=== PATIENT | male | born 1975 | race Caucasian/White ===

== ENCOUNTER 2020-02-01 13:30 | Inpatient (IN) | payer SELFPAY ==
[2020-02-01 14:06] LABS: #Basophils 0.1 thou/uL (0.0-0.2); #Eosinphils 0.1 thou/uL (0.0-0.7); #Lymphocytes 2.2 thou/uL (1.20-3.40); #Monocytes 0.7 thou/uL (0.11-0.59); #Neutrophils 4.8 thou/uL (1.40-6.50); %Basophils 1.1 % (0.0-1.0); %Eosinophils 1.3 % (0.0-10.0); %Lymphocytes 28.3 % (21.0-51.0); %Monocytes 8.7 % (0.0-10.0); %Neutrophils 60.6 % (42.0-75.0); Hemoglobin 15.9 g/dL (14.0-18.0); Mean Corpuscular HGB CONC 32.9 g/dL (32.0-36.0); Mean Corpuscular Hemoglobin 28.6 pg (27.0-31.0); Mean Corpuscular Volume 86.9 fL (78.0-98.0); Mean Platelet Volume 8.6 fL (7.4-10.4); Platelet Count 192 thou/uL (130-400); RBC Distribution Width 12.2 % (11.5-14.5); Red Blood Cell (RBC) Count 5.58 mill/uL (4.70-6.10); White Blood Cell (WBC) Count 7.9 thou/uL (4.8-10.8)
--- NOTE | 2020-02-01 14:15 | RAD ---
Chest one view HISTORY: Cough. Chest pain. FINDINGS: Cardiac silhouette and pulmonary vasculature are unremarkable. Mediastinum is midline. No c onfluent airspace consolidation or evidence of pneumothorax. monitor technician leads overlie the chest. IMPRESSION : Normal exam.
[2020-02-01 14:29] LABS: ALT (SGPT) 44 U/L (8-55); AST (SGOT) 31 U/L (5-34); Albumin 4.2 g/dL (3.5-5.0); Alkaline Phosphatase 124 U/L (40-110); Anion Gap 14 mmol/L (10-20); BUN (Urea Nitrogen) 19 mg/dL (8.9-20.6); Bilirubin, Total 0.9 mg/dL (0.2-1.2); CK (CPK) 201 U/L (30-200); Calc. Creatinine Clearance 0 mL/min (70-130); Carbon Dioxide 19 mmol/L (22-29); Chloride 107 mmol/L (98-107); Estimated GFR-MDRD 55; Globulin 2.8 g/dL (2.4-3.5); Glucose 71 mg/dL (70-105); Lipase 43 U/L (8-78); Potassium 4.2 mmol/L (3.5-5.1); Sodium 136 mmol/L (136-145)
[2020-02-01 14:51] LABS: CKMB 6.5 ng/mL (0-6.6)
[2020-02-01] MEDS ORDERED: Nitroglycerin 2% Ointment 1 INCH/1 GM Packet ONE (15:09)
[2020-02-01] MEDS ORDERED: Aspirin Chewable 81 MG TAB ONE (15:09)
[2020-02-01] MEDS ORDERED: Labetalol HCl 100 MG/20 ML VIAL SLOW IVP PRN (16:47)
[2020-02-01] MEDS ORDERED: cloNIDine 0.1 MG TAB PO PRN (16:47)
[2020-02-01] MEDS ORDERED: Acetaminophen 325 MG TAB PO PRN (16:49)
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
[2020-02-01 17:49] LABS: Troponin I 0.011 ng/mL (< 0.028)
[2020-02-01 18:40] VITALS: BMI 28.2
[2020-02-01] MEDS: Famotidine 20 MG TAB PO SCH (20:16)
[2020-02-01] MEDS: Nitroglycerin 2% Ointment 1 INCH/1 GM Packet TOP SCH (20:16)
[2020-02-01 20:17] LABS: Troponin I Less than 0.010 ng/mL (< 0.028)
[2020-02-01] MEDS ORDERED: Amlodipine 5 MG TAB PO SCH (21:00)
[2020-02-01] MEDS: Nitroglycerin 0.4 MG TAB (25 Tab Bottle) PO PRN ×2 (23:37→23:42)
[2020-02-01] MEDS ORDERED: Sodium Chloride 0.9% 1,000 ML IV SCH (23:55)
[2020-02-01 23:59] LABS: Bacteria/HPF None Seen HPF (None Seen); Bilirubin Negative (Negative); Blood, Urine Negative (Negative); Clarity Clear (Clear); Glucose, Urine (Dipstick) Normal (Negative); Leukocyte Negative Leu/uL (Negative); Nitrite Negative (Negative); Protein, Urine (Dipstick) Negative (Neg-Trace); RBC/HPF None Seen HPF (0-3); Squamous Epithelial None Seen HPF (0-3); Urobilinogen Normal mg/dL (Less than 2); WBC/HPF 0-3 HPF (0-3)
[2020-02-02 00:12] LABS: Medtox Reader # READER 4
[2020-02-02 00:13] LABS: Amphetamine Detected (NotDetected); Barbiturates Screen Not Detected (NotDetected); Benzodiazepine Screen Not Detected (NotDetected); Cocaine Metabolite Screen Not Detected (NotDetected); Medtox Control Line Valid? VALID (VALID); Methadone Not Detected (NotDetected); Methamphetamine Detected (NotDetected); Opiate Screen Not Detected (NotDetected); Oxycodone Screen Not Detected (NotDetected); Phencyclidine (PCP) Not Detected (NotDetected); THC/Cannabinoid Screen Not Detected (NotDetected); Tricyclic Screen Not Detected (NotDetected)
[2020-02-02] MEDS: Nitroglycerin 2% Ointment 1 INCH/1 GM Packet TOP SCH (04:58)
[2020-02-02 05:28] LABS: #Basophils 0.1 thou/uL (0.0-0.2); #Eosinphils 0.1 thou/uL (0.0-0.7); #Lymphocytes 2.8 thou/uL (1.20-3.40); #Monocytes 0.6 thou/uL (0.11-0.59); %Basophils 0.8 % (0.0-1.0); %Eosinophils 1.9 % (0.0-10.0); %Lymphocytes 36.9 % (21.0-51.0); %Monocytes 7.2 % (0.0-10.0); Hemoglobin 15.3 g/dL (14.0-18.0); Mean Corpuscular HGB CONC 33.3 g/dL (32.0-36.0); Mean Platelet Volume 9.2 fL (7.4-10.4); Platelet Count 177 thou/uL (130-400); RBC Distribution Width 12.3 % (11.5-14.5); Red Blood Cell (RBC) Count 5.27 mill/uL (4.70-6.10); White Blood Cell (WBC) Count 7.5 thou/uL (4.8-10.8)
[2020-02-02 05:55] LABS: Anion Gap 11 mmol/L (10-20); BUN (Urea Nitrogen) 18 mg/dL (8.9-20.6); Calc. Creatinine Clearance 110 mL/min (70-130); Calcium 8.8 mg/dL (7.8-10.44); Carbon Dioxide 20 mmol/L (22-29); Cardiac Risk 3.4 (Less than 4.5); Chloride 111 mmol/L (98-107); Cholesterol 137 mg/dl (< 200 Desired); Estimated GFR-MDRD 66; Glucose 98 mg/dL (70-105); HDL Cholesterol 40 mg/dL (>60 Neg Risk); LDL Cholesterol, Calculated 55 mg/dL; Potassium 4.2 mmol/L (3.5-5.1); Sodium 138 mmol/L (136-145); Triglycerides 211 mg/dL (Less than 150)
--- NOTE | 2020-02-02 07:55 | ULT ---
Carotid duplex sonogram HISTORY: Syncope. Vascular disease. FINDINGS: Right: Minimal plaque. Color and spectral Doppler evaluation, peak systolic velocity of 50 cm/s, and IC to CC ratio of 0.8 suggest no hematemesis significant stenosis within the extracranial right ICA. Antegrade flow within the vertebral artery. Left: Minimal plaque. Color and spectral Doppler evaluation, peak systolic velocity of 47 cm/s, and I C to CC ratio of 0.8 suggest no hematemesis significant stenosis within the extracranial left ICA. Antegrade flow within the vertebral artery. IMPRESSION : Minimal atherosclerosis visualized. No sonographic evidence of significant extracranial ICA stenosis.
[2020-02-02] MEDS ORDERED: Communication Order-Pharmacy FS SCH (09:00)
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
[2020-02-02] MEDS: Aspirin 81 mg Enteric Coated Tablet PO SCH (09:39)
[2020-02-02] MEDS: Famotidine 20 MG TAB PO SCH ×2 (09:39→21:38)
[2020-02-02] MEDS: NIFEdipine XL 30 MG TAB PO SCH (09:39)
--- NOTE | 2020-02-02 10:25 | PDOC.HOSPP ---
- Subjective Encounter Date: 02/02/20 Encounter Time: 10:24 Subjective: Patient seen and examined for CP/syncope. No new CP. No other complaints. No overnight events - Objective Vital Signs & Weight: Vital Signs (12 hours) Temp Pulse Resp BP BP BP BP 02/02/20 09:39 82 02/02/20 07:24 97.6 F 82 16 141/105 H 153/109 H 141/101 H 02/02/20 04:52 97.3 F L 89 18 147/92 H 02/01/20 23:28 78 144/91 H Pulse Ox 02/02/20 09:39 02/02/20 07:24 97 02/02/20 04:52 99 02/01/20 23:28 Weight Weight 220 lb I&O: 02/01/20 02/02/20 02/03/20 06:59 06:59 06:59 Intake Total 1800 Output Total 600 Balance 1200 Result Diagrams: 02/02/20 04:49 02/02/20 04:49 Additional Labs: Laboratory Tests 02/02/20 04:49 Triglycerides 211 H Cholesterol 137 LDL Cholesterol, Calc 55 HDL Cholesterol 40 Laboratory Tests 02/01/20 23:45 Ur Amphetamines Screen Detected H U Methamphetamines Scrn Detected H Radiology Reviewed by me: Yes (Carotid - no hemo sig stenosis) EKG Reviewed by me: Yes (Tele SR) Hospitalist ROS - Review of Systems Respiratory: denies: cough, dry, shortness of breath, hemoptysis, SOB with excertion, pleuritic pain, sputum, wheezing, other Cardiovascular: denies: chest pain, palpitations, orthopnea, paroxysmal noc. dyspnea, edema, light headedness, other Gastrointestinal: denies: nausea, vomiting, abdominal pain, diarrhea, constipation, melena, hematochezia, other - Medication Medications: Active Medications Generic Name Dose Route Start Last Admin Trade Name Freq PRN Reason Stop Dose Admin Acetaminophen 650 mg 02/01/20 16:49 02/01/20 21:41 Tylenol PO 650 mg Q4H PRN Administration Headache/Fever/Mild Pain (1-3) Aspirin 81 mg 02/02/20 09:00 02/02/20 09:39 Ecotrin PO 81 mg DAILY JOSSELIN Administration Famotidine 20 mg 02/01/20 21:00 02/02/20 09:39 Pepcid PO 20 mg BID JOSSELIN Administration Nifedipine 30 mg 02/02/20 09:00 02/02/20 09:39 Procardia Xl PO 30 mg DAILY JOSSELIN Administration Nitroglycerin 0.5 inch 02/01/20 22:00 02/02/20 04:58 Nitro-Bid 2% Ointment TOP 0.5 inch Q8HR JOSSELIN Administration Nitroglycerin 0.4 mg 02/01/20 16:43 02/01/20 23:42 Nitrostat PO 1 tab Q5MIN PRN Administration Chest Pain Sodium Chloride 10 ml 02/01/20 21:00 02/02/20 09:40 Flush - Normal Saline IVF 10 ml Q12HR JOSSELIN Administration - Exam General Appearance: NAD Neck: supple, no JVD Heart: RRR, no gallops, no rubs, normal peripheral pulses Respiratory: CTAB, no wheezes, no rales, no ronchi, normal chest expansion Gastrointestinal: soft, non-tender, non-distended, normal bowel sounds Extremities: no cyanosis, no clubbing Neurological: normal sensation to touch, no weakness, no new deficit Psychiatric: normal affect, A&O x 3 Hosp A/P - Plan DVT proph w/SCDs CP/?Unstable angina Syncope ?etio ACEI induced cough Meth abuse HTN - uncontrolled Prolonged QT Cannabis abuse CKD 2 Dyslipidemia PLAN: Cardio input appreciated Cardiac Cath planned Cont ASA Change Amlodipine to Procardia XL Clonidine PRN Cont other meds Counselled on lifestyle changes
[2020-02-02] MEDS ORDERED: ALPRAZolam 0.25 MG TAB PO PRN (10:30)
[2020-02-02] MEDS ORDERED: Enoxaparin Sodium 40 MG/0.4 ML SYRINGE SC SCH (16:15)
[2020-02-02] MEDS: Enoxaparin Sodium 40 MG/0.4 ML SYRINGE SC SCH (21:38)
[2020-02-03] MEDS: NIFEdipine XL 30 MG TAB PO SCH (08:51)
[2020-02-03] MEDS: Famotidine 20 MG TAB PO SCH ×2 (08:51→21:37)
[2020-02-03] MEDS: Aspirin 81 mg Enteric Coated Tablet PO SCH (08:51)
[2020-02-03] MEDS: Enoxaparin Sodium 40 MG/0.4 ML SYRINGE SC SCH (08:52)
--- NOTE | 2020-02-03 10:44 | CT ---
CT PULMONARY ANGIOGRAM WITH IV CONTRAST AND 3D MIP RECONSTRUCTIONS: DATE: 02/03/2020. PROVIDED CLINICAL HISTORY: Chest pain and syncope. FINDINGS: The heart, pericardium, and great vessels demonstrate a normal CT appearance. There is no evidence f or central or segmental pulmonary embolus. There is trace pericardial fluid. There is no evidence for thoracic lymph node enlargement. The airway appears patent and of normal caliber. There is a 6 mm noncalcified pulmonary nodule involving the right middle lobe. The lungs appear othe rwise free of significant opacity. There is no pleural fluid or pneumothorax apparent. The visualized portions of the upper abdomen appear unremarkable. With the exception of nonspecific b ilateral partially visualized perinephric fat stranding. The osseous structures demonstrate no concerning lytic or blastic lesions. IMPRESSION: 1. No evidence for central or segmental pulmonary embolus. 2. 6 mm noncalcified right middle lobe pulmonary nodule. [id number] followup chest CT recommen ded. POS: SHELBI
[2020-02-03] MEDS ORDERED: Iopamidol 370 76% 50 ML VIAL FS ONE (13:29)
--- NOTE | 2020-02-03 13:56 | PRG ---
DATE OF SERVICE: 02/03/2020 SUBJECTIVE: Mr. Angeles is doing better. No chest pain or pressure. CT pulmonary angiogram showed no evidence of any thrombus. When I spoke to him, he sounds like he does have probably sleep apnea. He is told that he snores very loud and it has also been mention to him that sometimes it is impossible to even stay in the room with him at night. OBJECTIVE: VITAL SIGNS: Blood pressure today is variable 142/101 and 150/110 is the most recent. LUNGS: Clear. CARDIAC: Normal S1, normal S2. ABDOMEN: Soft, nontender. EXTREMITIES: No edema. DIAGNOSTIC STUDIES: EKG, sinus rhythm, some nonspecific ST changes, but there is some mild prolongation of the QT interval. ASSESSMENT: 1. Syncopal episodes. 2. Right ventricular enlargement. 3. Probable sleep apnea, which is potentially the cause of the right ventricular enlargement. PLAN: Cardiac catheterization. Again, discussed risk with this gentleman. We discussed this is yesterday as well. The risks including stroke, heart attack, iodine allergy, loss of blood supply to leg or kidney, stent thrombosis, stent restenosis, bleeding, infection. The patient understands and wished to proceed. Also stent implantation, the risk of vessel occlusion, emergency bypass, stent thrombosis, stent restenosis. Job ID: [id number] [facility]
--- NOTE | 2020-02-03 15:45 | PDOC.HOSPP ---
- Subjective Encounter Date: 02/03/20 Encounter Time: 10:30 Subjective: Patient seen and examined for CP/syncope. No new episodes of CP or syncope. No new complaints. No overnight events - Objective Vital Signs & Weight: Vital Signs (12 hours) Temp Pulse Resp BP BP Pulse Ox 02/03/20 08:51 80 150/116 H 02/03/20 08:00 97.5 F L 80 150/116 H 98 02/03/20 04:00 97.5 F L 86 20 142/101 H 96 Weight Weight 212 lb 9.6 oz I&O: 02/02/20 02/03/20 02/04/20 06:59 06:59 06:59 Intake Total 1800 960 510 Output Total 600 Balance 1200 960 510 Result Diagrams: 02/02/20 04:49 02/02/20 04:49 Radiology Reviewed by me: Yes (CTA - No PE) EKG Reviewed by me: Yes (Tele SR) Hospitalist ROS - Review of Systems Cardiovascular: denies: chest pain, palpitations, orthopnea, paroxysmal noc. dyspnea, edema, light headedness, other Gastrointestinal: denies: nausea, vomiting, abdominal pain, diarrhea, constipation, melena, hematochezia, other - Medication Medications: Active Medications Generic Name Dose Route Start Last Admin Trade Name Freq PRN Reason Stop Dose Admin Acetaminophen 650 mg 02/01/20 16:49 02/01/20 21:41 Tylenol PO 650 mg Q4H PRN Administration Headache/Fever/Mild Pain (1-3) Aspirin 81 mg 02/02/20 09:00 02/03/20 08:51 Ecotrin PO 81 mg DAILY JOSSELIN Administration Famotidine 20 mg 02/01/20 21:00 02/03/20 08:51 Pepcid PO 20 mg BID JOSSELIN Administration Nifedipine 30 mg 02/02/20 09:00 02/03/20 08:51 Procardia Xl PO 30 mg DAILY JOSSELIN Administration Nitroglycerin 0.4 mg 02/01/20 16:43 02/01/20 23:42 Nitrostat PO 1 tab Q5MIN PRN Administration Chest Pain Sodium Chloride 10 ml 02/01/20 21:00 02/03/20 08:52 Flush - Normal Saline IVF 10 ml Q12HR JOSSELIN Administration - Exam General Appearance: NAD Heart: RRR, no gallops, no rubs, normal peripheral pulses Respiratory: no wheezes, no rales Gastrointestinal: soft, non-tender, non-distended, normal bowel sounds Extremities: no cyanosis Neurological: no new deficit Psychiatric: normal affect, A&O x 3 Hosp A/P - Plan DVT proph w/SCDs CP/?Unstable angina Syncope ?etio RV enlargement ACEI induced cough Meth abuse HTN - uncontrolled Prolonged QT Cannabis abuse CKD 2 Dyslipidemia Lung nodule PLAN: Cardiac Cath in AM Cont ASA Cont Procardia XL Cont Clonidine PRN Cont other meds Case d/w Dr Mast
[2020-02-04] MEDS: Aspirin 81 mg Enteric Coated Tablet PO SCH (05:00)
[2020-02-04] MEDS: Famotidine 20 MG TAB PO SCH (05:00)
[2020-02-04] MEDS ORDERED: Sodium Chloride 0.9% 1,000 ML IV SCH (06:00)
[2020-02-04] MEDS ORDERED: Diazepam 5 MG TAB PO SCH (06:00)
[2020-02-04] MEDS ORDERED: NIFEdipine XL 60 MG TAB PO SCH (06:00)
[2020-02-04] MEDS ORDERED: Midazolam HCl 2 mg/2 ml Vial ONE (08:35)
[2020-02-04] MEDS ORDERED: Fentanyl 100 MCG/2 ML VIAL ONE (08:35)
[2020-02-04] MEDS ORDERED: Iopamidol 370 76% 100 ML VIAL ONE (08:46)
[2020-02-04] MEDS ORDERED: Nitroglycerin 100MG/250ML BOT 250 ML ONE (09:19)
[2020-02-04] MEDS ORDERED: Sodium Chloride 0.9% 200 ML IV PRN (10:08)
[2020-02-04] MEDS ORDERED: Acetaminophen/Codeine 30-300mg Tablet PO PRN (10:08)
--- NOTE | 2020-02-04 14:11 | PRG ---
DATE OF SERVICE: 02/04/2020 I reviewed the results of the cardiac catheterization with Mr. Angeles. The patient has no obstructive coronary artery disease. He has minimal plaque in the circumflex 20%, but no obstructions. Right coronary 10%. The left ventricular ejection fraction is within normal limits other than the paradoxical septal motion secondary to right heart overload. The patient's pulmonary pressure systolic is 71. The catheter would not go into the pulmonary artery, but there is right ventricular pressure and there is no pulmonic stenosis. The RV pressure is 71/18, RA pressure 16 to 18, LV is 128/12. The patient has had syncopal episodes, one after coughing and two after walking. He is feeling short of breath. He felt dizzy and lightheaded and sat down quickly and still fainted. The patient has pulmonary hypertension. He has a markedly enlarged right ventricle and right atrium, and paradoxical septal motion. A chest CTA showed no evidence of any thromboembolic disease. He has no history of smoking. We recommend he have a sleep study as out patient, but it does not clinically appear that he has likely to be have sleep apnea. Also, pulmonary function test will be done. We will start him on Procardia XL. Interestingly, the central pressures are actually much lower than what we were getting in the peripheral artery cuff. When I did the femoral artery injection to look where the sheath was, the flow looked slow, so I think that he has relatively low cardiac output. I think the cardiac output is limited by the right ventricle. Prognosis in this situation is guarded to long-term poor if no triggering factor could be found. He said he used to do some amphetamine in the past to stay awake, but he has not done that in years. His drug screen is positive for amphetamine and methamphetamine. He actively denies doing anything in the last few years. We have seen some false-positive tests with these in the lab, so it is not clear. At any rate, pulmonary function tests will be ordered. Outpatient sleep study will be scheduled. He will likely need to be referred to a pulmonary hypertension specialist as a precaution. We will give him a monitor to make sure he is not on arrhythmia, making him faint, but I think it is probably the pulmonary hypertension. Long-term prognosis is guarded. We instructed him that he should not drive for at least 6 months after fainting. Job ID: [id number] Addendum, pt had the nurse call me, I spoke with patient he states he has been using amphetamines, likely mixed with marijuana. This may be triggering his pulm hypertension. He will completely abstain. He did not wish to stay for further evaluation or PFT. I doubt he has lung disease. If pulmonary pressures remain high despite abstaining from substances, I told him I recommend consultation with pulmonary hypertension specialist. He was advised not to drive for 6 months in view of syncope. MTDD
[2020-02-04 15:32] VITALS: BP 120/84; TEMP 98
--- NOTE | 2020-02-04 19:16 | DIS ---
DATE OF ADMISSION: 02/01/2020 DATE OF DISCHARGE: 02/04/2020 DISCHARGE DISPOSITION: Home. FOLLOWUP: 1. Follow up with primary care physician at [facility] in 1 week. 2. Follow up with Cardiology, Dr. Mast, as scheduled. ALLERGIES: LISINOPRIL. DISCHARGE INSTRUCTIONS: 1. The patient was advised to follow up on the lung nodule. 2. The patient was advised to schedule appointment with a fermentation scientist for pulmonary hypertension. 3. No driving until cleared by MD. 4. Outpatient sleep study is recommended. DISCHARGE MEDICATIONS: 1. Nifedipine extended release 30 mg daily. 2. Clonidine as needed. 3. Aspirin 81 mg daily. The patient was seen on the day of discharge. Denies any new complaints. No chest pain, shortness of breath, or palpitations. DIAGNOSTIC TESTS: 1. Echocardiogram showed ejection fraction of 50% to 55% with paradoxical septal motion, severely enlarged right ventricle cavity with moderately elevated pulmonary artery pressure. 2. Cardiac catheterization showed 20% circumflex plaque, 10% RCA plaque, otherwise normal coronaries. 3. CT angiogram of the chest was negative for pulmonary embolism. It showed a 6 mm noncalcified right middle lobe pulmonary nodule. A 3-month and 6-month followup CT is recommended. Primary care physician advised to follow. 4. Carotid Doppler was negative for hemodynamically significant stenosis. It showed minimal atherosclerosis. BRIEF HOSPITAL COURSE: The patient is a 44-year-old male, who presented to the emergency room after a syncopal episode. Please refer to the history and physical for further details. The patient was admitted to the telemetry unit with a diagnosis of syncope along with chest discomfort. The patient was evaluated by Cardiology, Dr. Mast. His symptoms were concerning for unstable angina. For this reason, Dr. Mast recommended a cardiac catheterization as discussed above. He also had echocardiogram as well as CT angiogram as discussed above. He was advised to follow up with a fermentation scientist as outpatient for pulmonary hypertension. A sleep study is also recommended. He was also instructed not to drive until cleared by Pulmonology. His urine drug screen was positive for methamphetamine. SIGNIFICANT LABORATORY DATA: Troponin 0.031. Fasting lipid profile showed triglyceride 211, cholesterol 137, LDL of 55, HDL of 40. TSH was 1.4. The patient understands the above plan of care. Job ID: [id number]
[2020-02-05] MEDS ORDERED: NIFEdipine XL 60 MG TAB PO SCH (06:00)
--- NOTE | 2020-02-06 13:56 | EKG ---
Test Reason : Blood Pressure : / mmHG Vent. Rate : 093 BPM Atrial Rate : 093 BPM P-R Int : 162 ms QRS Dur : 096 ms QT Int : 400 ms P-R-T Axes : 060 108 022 degrees QTc Int : 497 ms Normal sinus rhythm Possible Left atrial enlargement Rightward axis Prolonged QT Abnormal ECG Confirmed by DAVINA MELCHOR DO ([id number]), newspaper managing editor SONIA LUCIO ([id number] on 02/06/2020 1:55:33 PM Referred By: Confirmed By:DAVINA MELCHOR DO
== END 2020-02-04 16:45 | disposition home or self-care (01) | DRG 287 ==
LOC: ERS 13:30 → 2SW 15:53 → OBSVTOIN 15:53 → 2NO 02-02 15:57
PROVIDERS: ADMIT Internal Medicine; ATTEND Internal Medicine
PROC: 4A023N8 Measurement of Cardiac Sampling and Pressure, Bilateral, Percutaneous Approach (ICD-10-PCS; principal; 2020-02-04)
PROC: B2151ZZ Fluoroscopy of Left Heart using Low Osmolar Contrast (ICD-10-PCS; 2020-02-04)
PROC: B2111ZZ Fluoroscopy of Multiple Coronary Arteries using Low Osmolar Contrast (ICD-10-PCS; 2020-02-04)
PROC: B2141ZZ Fluoroscopy of Right Heart using Low Osmolar Contrast (ICD-10-PCS; 2020-02-04)
DX: I20.0 Unstable angina (principal); I47.2 Ventricular tachycardia; F17.210 Nicotine dependence, cigarettes, uncomplicated; R94.31 Abnormal electrocardiogram [ECG] [EKG]; F12.10 Cannabis abuse, uncomplicated; E78.5 Hyperlipidemia, unspecified; F15.10 Other stimulant abuse, uncomplicated; I12.9 Hypertensive chronic kidney disease with stage 1 through stage 4 chronic kidney disease, or unspecified chronic kidney disease; N18.2 Chronic kidney disease, stage 2 (mild); I27.20 Pulmonary hypertension, unspecified; R91.1 Solitary pulmonary nodule; R05 Cough; T44.5X5A Adverse effect of predominantly beta-adrenoreceptor agonists, initial encounter; G47.30 Sleep apnea, unspecified; Z79.899 Other long term (current) drug therapy
CPT/HCPCS: 36415; 71045; 71275; 76942; 80048; 80053; 80061; 80306; 81001; 82550; 82553; 83690; 83735; 84443; 84484; 85025; 93005; 93010; 93306; 93460; 93880; 94760; 99152; 99153; C1769; J1644; J1650; J2250; J3010; Q9967